=== PATIENT | male | born 1945 | race Caucasian/White ===

== ENCOUNTER 2025-05-08 10:47 | Day surgery (SDC) | payer MEDICARE, SELFPAY ==
[2025-05-08 11:38] LABS: INR 2.53; PT 26.8 Sec (11.4-14.6)
--- NOTE | 2025-05-08 12:50 | ITS.CL.CARDI ---
Contract Technical Writer - Cardioversion
Cardioversion
Procedure Report:
Sedation: per anesthesia
Procedure: Successful synchronized biphasic cardioversion with 200 Joules to NSR, returned to AF with RVR, repeat ECV at 200 J to SR
Patient was positively identified, and procedure time was taken. Informed consent obtained. Correct patient position. Relevant images and results reviewed prior to procedure. Patient history and medications reviewed. Agreement to proceed.
Pre-op Diagnosis: afib
Post-op Diagnosis: Same
Patient was taken to the recovery area in stable condition. No complications
== END 2025-05-08 13:29 | disposition home or self-care (01) ==
LOC: CATH 10:47
PROVIDERS: ATTENDING PHYSICIAN Internal Medicine Interventional Cardiology; FAMILY PHYSICIAN Family Medicine; OTHER PHYSICIAN Internal Medicine
DX: I48.91 Unspecified atrial fibrillation (principal); I49.1 Atrial premature depolarization; I47.10 Supraventricular tachycardia, unspecified; I11.0 Hypertensive heart disease with heart failure; I50.22 Chronic systolic (congestive) heart failure
CPT/HCPCS: 85610; 92960; 93005